=== PATIENT | male | born 1945 | race Caucasian/White ===

== ENCOUNTER 2018-10-21 15:50 | Inpatient (IN) | payer BC, MEDICARE ==
[~2018-10-21 15:50] MED LIST: ISOVUE-370 76%-LOCM 1 ML ONE
[2018-10-21 17:13] LABS: #Lymphocytes 1.6 thou/uL (1.20-3.40); #Neutrophils 16.6 thou/uL (1.40-6.50); %Basophils 0.1 % (0.0-1.0); %Eosinophils 0.1 % (0.0-10.0); %Lymphocytes 8.2 % (21.0-51.0); %Monocytes 5.3 % (0.0-10.0); %Neutrophils 86.2 % (42.0-75.0); Hemoglobin 15.5 g/dL (14.0-18.0); Mean Corpuscular HGB CONC 33.4 g/dL (32.0-36.0); Mean Corpuscular Hemoglobin 29.9 pg (27.0-31.0); Mean Corpuscular Volume 89.4 fL (78.0-98.0); Mean Platelet Volume 8.8 fL (7.4-10.4); Platelet Count 243 thou/uL (130-400); RBC Distribution Width 12.9 % (11.5-14.5); Red Blood Cell (RBC) Count 5.19 mill/uL (4.70-6.10); White Blood Cell (WBC) Count 19.2 thou/uL (4.8-10.8)
[2018-10-21 17:16] LABS: INR-International Normal Ratio 1.1; PTT 25.1 SEC (22.9-36.1); Prothrombin Time 13.8 SEC (12.0-14.7)
[2018-10-21 17:35] LABS: ALT (SGPT) 18 U/L (8-55); AST (SGOT) 21 U/L (5-34); Albumin 4.3 g/dL (3.4-4.8); Alkaline Phosphatase 95 U/L (40-150); Anion Gap 15 mmol/L (10-20); BUN (Urea Nitrogen) 17 mg/dL (8.4-25.7); Bilirubin, Total 0.7 mg/dL (0.2-1.2); Calc. Creatinine Clearance 0 mL/min (70-130); Calcium 9.9 mg/dL (7.8-10.44); Carbon Dioxide 24 mmol/L (23-31); Chloride 107 mmol/L (98-107); Estimated GFR-MDRD 62; Glucose 151 mg/dL (83-110); Potassium 3.3 mmol/L (3.5-5.1); Protein, Total 8.3 g/dL (5.8-8.1); Sodium 143 mmol/L (136-145)
[2018-10-21 17:38] LABS: CKMB 2.8 ng/mL (0-6.6); Troponin I 0.091 ng/mL (< 0.028)
[2018-10-21] MEDS ORDERED: Heparin 25,000 units/D5W 500 ML ONE (20:16)
--- NOTE | 2018-10-21 20:22 | CT ---
CT ANGIOGRAM ABDOMEN AND PELVIS AND BILATERAL LOWER EXTREMITIES: 10/21/2018 HISTORY: Intermittent right-sided leg pain for five days. COMPARISON: None. TECHNIQUE: Axial CT imaging at 2.5 mm intervals, from the lung bases through the feet, with IV contrast, using a CT angiogram protocol. Coronal and sagittal 3D reformatted imaging obtained. FINDINGS: The imaged lung bases appear unremarkable, aside from linear scar in the posterior right lower lobe a nd in the inferior left upper lobe. No free intraperitoneal air or fluid. Cholecystectomy clips are present. There is biliary gas, suggesting a prior sphincterotomy. The liver, spleen, pancreas, adr enal glands, and kidneys demonstrate no acute findings. There is a vague hypodensity in the superolateral aspect of the left kidney, best seen on axial image 60 and coronal image 90, too small to characterize. A follow-up renal ultrasound may beneficial. Limited assessment of the bowel demonstrates extensive diverticulosis of the descending colon and sig moid colon with no evidence for diverticulitis. No evidence for bowel inflammatory change or obstruc tion. The appendix is within normal limits. No lymphadenopathy is noted within the retroperitoneum, the pelvis, or the mesentery. The abdominal aorta shows extensive multifocal atherosclerotic calcification of the abdominal aorta a nd its branches. There is moderate stenosis at the origin of the celiac axis. There is mild stenosis at the origin of the superior mesenteric artery. The inferior mesentery artery is patent. There are two patent renal arteries bilaterally. There is probably hemodynamically significant steno sis involving the inferior renal artery bilaterally. There is focal ectasia of the infrarenal abdominal aorta with no evidence for aneurysm in this region . There is borderline aneurysmal dilatation of the abdominal aorta, at the level of the diaphragmati c hiatus, measuring 3 cm in transverse dimension. PELVIC ARTERIAL STRUCTURES: There is extensive atherosclerotic calcification of the bilateral common iliac arteries. There is a patent stent within the left common iliac artery. The internal carotid arteries are patent bilaterally, with hemodynamically significant stenosis noted at the origin of the bilateral internal iliac arteries, right greater than left. The external iliac artery on the left is occluded. Right external iliac artery is patent. LEFT LOWER EXTREMITY: The left common femoral artery is patent, reconstituted via branches of deep iliac circumflex artery, in the hypogastric artery. The left superficial femoral artery is patent and demonstrates mild distal atherosclerotic calcificat ion. The left profunda femoral artery is patent. The left popliteal artery is patent, with mild focal stenosis on axial image 323, near its origin. T he left anterior tibial artery is patent to the foot. The left tibioperoneal trunk is patent. The l eft posterior tibial artery is patent to the foot, and the left peroneal artery is patent to the ankl e. RIGHT LOWER EXTREMITY: The right common femoral artery is patent and demonstrates scattered atherosc lerotic calcification. The right profunda femoral artery is patent. There is mild stenosis at the origin of the right superficial femoral artery. No hemodynamically sig nificant stenosis is seen involving the proximal or the mid right SFA. The right SFA is occluded jason roximately 12-13 cm proximal to the knee, at approximately axial image 283 and coronal image 98. Thi s appears to be secondary to an intra-arterial filling defect, on the basis of embolism. The SFA is patent distal to this, on the right, on axial image 300, suggesting an acute embolism measuring appro ximately 2 cm in length. There is moderate stenosis involving the SFA, distally, on image 318. The right popliteal artery is patent. The right posterior tibial artery is patent proximally but is occl uded in the mid calf region. The left posterior tibial artery extends to approximately the level of the foot, and the left peronea l artery is patent to the level of the ankle. Review of the osseous structures of the abdomen and pelvis and bilateral lower extremities demonstrat es no acute findings. IMPRESSION: Findings suggesting an arterial embolism within the mid/distal right superficial femoral artery, as d etailed above. Additional areas of atherosclerotic disease, as detailed above. Report called to Dr. Garcia at 7:40 p.m. on 10/21/2018. CODE CR POS: [facility]
[2018-10-21] MEDS ORDERED: Heparin 10,000 UNITS/ 10 ML VIAL SLOW IVP SCH (20:30)
[2018-10-21] MEDS ORDERED: Heparin 25,000 units/D5W 500 ML IV SCH (20:30)
[2018-10-21 21:08] LABS: Troponin I Less than 0.010 ng/mL (< 0.028)
[2018-10-21] MEDS ORDERED: Ondansetron PF 4 MG/2 ML Vial IVP PRN (21:36)
[2018-10-21] MEDS ORDERED: Acetaminophen 325 MG TAB PO PRN (21:36)
[2018-10-22 00:05] LABS: Troponin I Less than 0.010 ng/mL (< 0.028)
[2018-10-22 02:58] LABS: PTT 133.6 SEC (22.9-36.1)
[2018-10-22 03:12] VITALS: BMI 20.3
[2018-10-22] MEDS ORDERED: Sodium Chloride 0.9% 1,000 ML IV SCH ×2 (05:30→11:17)
[2018-10-22] MEDS ORDERED: Levothyroxine 150 MCG TAB PO SCH (06:00)
[2018-10-22 06:29] LABS: Anion Gap 12 mmol/L (10-20); BUN (Urea Nitrogen) 19 mg/dL (8.4-25.7); Calc. Creatinine Clearance 78 mL/min (70-130); Calcium 8.8 mg/dL (7.8-10.44); Carbon Dioxide 24 mmol/L (23-31); Chloride 106 mmol/L (98-107); Estimated GFR-MDRD Greater than 90; Glucose 89 mg/dL (83-110); Sodium 138 mmol/L (136-145)
[2018-10-22 06:38] LABS: #Basophils 0.1 thou/uL (0.0-0.2); #Eosinphils 0.2 thou/uL (0.0-0.7); #Monocytes 0.6 thou/uL (0.11-0.59); #Neutrophils 3.4 thou/uL (1.40-6.50); %Basophils 0.9 % (0.0-1.0); %Eosinophils 2.6 % (0.0-10.0); %Lymphocytes 31.8 % (21.0-51.0); %Neutrophils 54.7 % (42.0-75.0); Hemoglobin 13.2 g/dL (14.0-18.0); Mean Corpuscular HGB CONC 33.3 g/dL (32.0-36.0); Mean Corpuscular Hemoglobin 30.1 pg (27.0-31.0); Mean Corpuscular Volume 90.3 fL (78.0-98.0); Mean Platelet Volume 9.6 fL (7.4-10.4); Platelet Count 134 thou/uL (130-400); RBC Distribution Width 13.5 % (11.5-14.5); Red Blood Cell (RBC) Count 4.38 mill/uL (4.70-6.10); White Blood Cell (WBC) Count 6.2 thou/uL (4.8-10.8)
--- NOTE | 2018-10-22 06:44 | HP ---
PRIMARY CARE PHYSICIAN: Dr. Franco CODE STATUS: FULL CODE. TIME OF EVALUATION: 2100 CHIEF COMPLAINT: Pain in the right lower extremity. HISTORY OF PRESENT ILLNESS: This is a 73-year-old male patient with past medical history of hypothyr oidism, peripheral vascular disease in the past with stent placement in the left femoral artery 19 ye ars ago. The patient came to the hospital after having right calf pain during examination Dr. Salvador avina id not feel a pulse on the right lower extremity and sent the patient to the hospital. No clear trig gers, no alleviating factors. The patient has significant claudication with worsening of the pain wi th exertion and improvement with rest. 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 REVIEW OF SYSTEMS: CONSTITUTIONAL: No fever or chills, generalized weakness. RESPIRATORY: No cough, sputum production or shortness of breath. CARDIOVASCULAR: No chest pain, palpitation. GASTROINTESTINAL: No nausea, no vomiting, diarrhea or abdominal pain. HOSPICE TEAM LEAD: No dizziness, headache or feeling lightheaded. GENITOURINARY: No burning with urination. EXTREMITIES: There is right lower extremity pain. The pulses are absent to palpation, audible to Do ppler. The rest of the review of systems were reviewed and are negative except for the findings mentioned ab ove. PAST MEDICAL HISTORY: As mentioned in the HPI. FAMILY HISTORY: Mother had cancer. Father had heart problems and diabetes. PAST SURGICAL HISTORY: The patient has a history of cholecystectomy. PSYCHIATRIC HISTORY: No previous psych history. SOCIAL HISTORY: The patient drinks socially. No drug use. Patient is a smoker on a daily basis, 1 pack of cigarettes per day for 60 years. ALLERGIES: PENICILLIN. REPORTED MEDICATIONS: Levothyroxine. PHYSICAL EXAMINATION: VITAL SIGNS: On presentation, blood pressure 185/61, heart rate 77, respiratory rate was 18, tempera ture 98.2. Pain was 2/10. Oxygen saturation was 96 on room air. GENERAL APPEARANCE: The patient is alert, oriented, no acute distress. HEENT: Normal conjunctivae. Moist oral mucosa, anicteric. NECK: No JVD. RESPIRATORY: Bilateral air entry. No rales or wheezes. Symmetric expansion. CARDIOVASCULAR: Normal rate, regular rhythm. No murmurs, no gallop. No edema. ABDOMEN: Soft, normal bowel sounds. MUSCULOSKELETAL: Normal range of motion. No spinal tenderness. SKIN: Warm and intact. No pallor, no rash, no redness. Peripheral pulses are nonpalpable, present to Doppler. Capillary refill seems to be intact. The patient has pain in the right lower calf. The re is no evidence of any new focal weakness. Baseline speech. Cranial nerves seems to be intact. PSYCHIATRIC: The patient is in good mood. No anxiety. Oriented. Optimal judgment. IMAGING: EKG was reviewed. EKG shows sinus bradycardia at the rate of 58, no acute ischemic finding s. LABORATORY DATA: Labs were reviewed. The patient's white count 19.2, hemoglobin 15.5, MCV 89, plate let count 243. Coagulation: PT 13.1, INR 1.1, PTT 25. D-dimer 1.0. Chemistry: Sodium 143, potass ium 3.3, chloride 107, carbon dioxide 34, anion gap 15, BUN 17, creatinine 1.16, GFR 62, glucose 151, calcium 9.9, total bilirubin 0.7, AST 31, ALT 18, alkaline phosphatase 95, CK-MB 2.8, troponin 0.09, the second one was 0.01. Serum total protein 8.3, albumin 4.3, globulin 4.0, albumin globulin ratio is 1.1. CT angio was reviewed. Findings are suggestive of arterial embolism within the mid distal right supe rficial femoral artery. ASSESSMENT AND PLAN: The patient will be placed in the hospital for the following medical problems: 1. Arterial embolism of the mid distal right superficial femoral artery. The patient has been place d on heparin drip, Dr. Dutta has been consulted from the ER, we will follow recommendations. We will adjust the treatment as per Dr. Dutta's recommendations. 2. Extending peripheral vascular disease with previous stent placement. Patient has also long-term history of smoking, advised to stop smoking. 3. Hypothyroidism. Continue hormone replacement. 4. Leukocytosis. White count 19.2, unclear etiology. No evidence of sepsis at this point, we will monitor white count. We will treat accordingly. 5. Hyperglycemia, glucose 151. The patient has no history of diabetes. This could be secondary to acute physical distress. No need for any acute intervention at this point. 6. Mildly elevated troponin on presentation 0.091. This has trended down to normal, most likely not secondary to cardiac disease. Will trend. Will treat underlying condition. The patient does have a history of coronary artery disease. Cardiology might be consulted if need for any surgical clearan ce is needed. 7. Deep venous thrombosis prophylaxis. The patient is on heparin drip.
[2018-10-22 06:56] LABS: PLT Morphology Comment Appears Adequate
--- NOTE | 2018-10-22 07:07 | CON ---
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 He is followed typically by Dr. Franco. About 1998, he underwe nt a left common iliac artery stenting by the Radiology Service for a left hip claudication. Since t hat time, he has continued smoking with no other major risk factors that he is aware of. He occasion ally gets claudication in both calves with mowing the yard, but last week while putting up [place] lights his right calf bothered him and he went in the house and it resolved and then Sunday he was mo wing the grass and had to stop due to his significant right calf cramps. He saw Dr. Franco yesterday w lele sent him to the emergency room. PAST MEDICAL HISTORY: Negative for hypertension, diabetes mellitus, dyslipidemia. PAST SURGICAL HISTORY: Cholecystectomy and then subsequent 2 occasions common bile duct stones requi ring ERCP. SOCIAL HISTORY: He smokes a pack of cigarettes a day. He is retired. No one accompanies him this e vening. MEDICATIONS: Levothyroxine 150 mcg a day. He has been on aspirin in the past, but stopped this many years ago due to bruising and restarted last p.m. PHYSICAL EXAMINATION: GENERAL: Alert, cooperative gentleman. Height 6 feet 1, weight 154. VITAL SIGNS: Most recent blood pressure 175/74, heart rate 61. NECK: No carotid bruits. LUNGS: Clear to auscultation. CARDIAC: Regular rate and rhythm. No murmurs. ABDOMEN: Soft, nontender, no masses, bruits, tenderness. EXTREMITIES: He has a palpable right femoral pulse and a palpable left dorsalis pedis pulse and bila teral popliteal pulses. He has no left femoral pulse. He has no peripheral edema. His feet are pin k and warm with no skin changes. I have reviewed his CT angiogram showing complete occlusion of his left external iliac artery from th e origin to the takeoff of the common femoral artery. He has a short segment occlusion in the right superficial femoral artery with tibioperoneal disease bilaterally. PLAN: The plan at this time is for right leg antegrade stick and percutaneous intervention for his r ight SFA lesion. If his left leg becomes more symptomatic he will require an aortobifemoral bypass. His initial troponin was slightly elevated; however, subsequent checks x2 were normal. His resting EKG is unremarkable. He has no history of chest pain. Informed consent has been obtained for right leg intervention.
[2018-10-22 07:27] LABS: Platelet Count 137 thou/uL (130-400)
[2018-10-22 07:30] LABS: Fibrinogen 470 mg/dL (253-463)
[2018-10-22 07:31] LABS: PTT 40.3 SEC (22.9-36.1); Prothrombin Time 13.2 SEC (12.0-14.7)
[2018-10-22 07:57] LABS: FSP-Qualitative Normal (Normal)
[2018-10-22] MEDS ORDERED: Sodium Chloride 0.65% Nasal 44 ML BOT EA NARE PRN (08:42)
[2018-10-22] MEDS ORDERED: Bisacodyl 5 MG TAB PO PRN (08:42)
[2018-10-22] MEDS ORDERED: Acetaminophen 500 MG TAB PO PRN (08:42)
[2018-10-22] MEDS ORDERED: hydrALAZINE 20 MG/ML VIAL SLOW IVP PRN (08:42)
[2018-10-22] MEDS ORDERED: Benzonatate 100 MG CAP PO PRN (08:42)
[2018-10-22] MEDS ORDERED: Senokot S 8.6-50 MG TAB PO PRN (08:42)
[2018-10-22] MEDS ORDERED: Ibuprofen 200 MG TAB PO PRN (08:42)
[2018-10-22] MEDS ORDERED: cloNIDine 0.1 MG TAB PO PRN (08:42)
[2018-10-22] MEDS ORDERED: Nitroglycerin 0.4 MG TAB (25 Tab Bottle) SL PRN (08:42)
[2018-10-22] MEDS ORDERED: Aspirin 81 mg Enteric Coated Tablet PO SCH (09:00)
[2018-10-22] MEDS ORDERED: Lidocaine 1% (PF) 30 ML VIAL ONE (09:16)
[2018-10-22] MEDS ORDERED: Midazolam HCl 2 mg/2 ml Vial ONE (09:48)
[2018-10-22] MEDS ORDERED: Fentanyl 100 MCG/2 ML VIAL ONE (09:49)
[2018-10-22] MEDS ORDERED: Heparin 10,000 UNITS/1 ML VIAL ONE (10:09)
[2018-10-22] MEDS ORDERED: Iopamidol 370 76% 50 ML VIAL FS ONE (10:13)
[2018-10-22] MEDS ORDERED: Protamine Sulfate 50 MG/5 ML VIAL ONE (10:43)
[2018-10-22] MEDS ORDERED: Clopidogrel Bisulfate 300 MG TAB ONE (10:45)
--- NOTE | 2018-10-22 10:59 | OP ---
PREOPERATIVE DIAGNOSIS: Peripheral artery disease, right leg. PROCEDURE: Right lower extremity angiography with balloon angioplasty 5 x 100 Lutonix and then compl etion with a 6 x 80 Sentinol stent posted with a 5-mm balloon. SURGEON: Marshall Dutta M.D. CONTRAST: 32. FLUOROSCOPY: 6.9 minutes. IV SEDATION: Versed and fentanyl, 35 minutes sedation time. PROCEDURE IN DETAIL: After prepping and draping the right groin, a micropuncture was used to punctur e the common femoral artery, wire inserted, and the 5-Upper Sorbian microcatheter inserted. Angiography [place] wed the catheter entered the common and then into the profunda femoral artery. It was withdrawn and slight bend on the microwire allowed the SFA to be cannulated. [employer] wire and 5-Upper Sorbian dilator and sheath were placed. The patient was then heparinized. After angiography, demonstrated essentially a total occlusion of the distal SFA over a period of about 3 cm and then some disease proximal and di stal to this. There was 3-vessel runoff, although the anterior tibia had a high grade lesion at its origin. A 4 x 80 balloon was then used to predilate the lesion following which a 5 x 100 Lutonix bal loon was inflated for 3 minutes. Result was suboptimal and it was elected to place a 6 x 80 Sentinol stent, which was posted with a 5-mm balloon with good result and good runoff distally. The patient tolerated the procedure.
[2018-10-22] MEDS ORDERED: Fentanyl 100 MCG/2 ML VIAL SLOW IVP PRN (11:17)
[2018-10-22] MEDS ORDERED: HYDROcodone/Acetaminophen 5/325 mg Tablet PO PRN (11:17)
--- NOTE | 2018-10-22 15:57 | PDOC.PN ---
- Subjective Encounter Start Date: 10/22/18 Encounter Start Time: 15:56 Subjective: seen and examined.s/p R leg arterial stenting -: feels well..no N/V.no dizzziness.no fever - Objective MAR Reviewed: Yes Vital Signs & Weight: Vital Signs (12 hours) Temp Pulse Resp BP Pulse Ox 10/22/18 11:10 97.7 F 60 18 164/68 H 95 10/22/18 08:32 97.7 F 57 L 16 141/63 H 96 Weight Weight 154 lb 1.65 oz Result Diagrams: 10/22/18 07:10 10/22/18 05:13 Radiology Reviewed by me: Yes (ECHO -NL EF.Diastolic dysFx) Phys Exam - Physical Examination Constitutional: NAD HEENT: PERRLA, moist MMs, sclera anicteric, oral pharynx no lesions Neck: no nodes, no JVD, supple, full ROM Respiratory: no wheezing, no rales, no rhonchi, clear to auscultation bilateral Cardiovascular: RRR, no significant murmur, no rub B/L doraslia pedis pulses felt easily.lower ext warm Gastrointestinal: soft, non-tender, no distention, positive bowel sounds Musculoskeletal: no edema, pulses present Neurological: non-focal, normal sensation, moves all 4 limbs Psychiatric: normal affect, A&O x 3 Dx/Plan (1) Claudication of both lower extremities Code(s): I73.9 - PERIPHERAL VASCULAR DISEASE, UNSPECIFIED Status: Acute (2) PAD (peripheral artery disease) Code(s): I73.9 - PERIPHERAL VASCULAR DISEASE, UNSPECIFIED Status: Acute (3) Tobacco abuse Code(s): Z72.0 - TOBACCO USE Status: Acute (4) Hypothyroid Code(s): E03.9 - HYPOTHYROIDISM, UNSPECIFIED Status: Chronic - Plan plan discussed w/ family, DVT proph w/SCDs S/P R leg arterial stenting .Left not amenable for stents d/t complete occl -: Plavix to be started by CTS. -: strong tobacco cessation advice given. -: HD stable.Dc later of remains so and Ok w CTS -: cont ASA.Heparin drip stopped * . Review of Systems - Review of Systems Constitutional: negative: fever, chills, sweats, weakness, malaise, other ENT: negative: Ear Pain, Ear Discharge, Nose Pain, Nose Discharge, Nose Congestion, Mouth Pain, Mouth Swelling, Throat Pain, Throat Swelling, Other Respiratory: negative: Cough, Dry, Shortness of Breath, Hemoptysis, SOB with Excertion, Pleuritic Pain, Sputum, Wheezing Cardiovascular: negative: chest pain, palpitations, orthopnea, paroxysmal nocturnal dyspnea, edema, light headedness, other Gastrointestinal: negative: Nausea, Vomiting, Abdominal Pain, Diarrhea, Constipation, Melena, Hematochezia, Other Genitourinary: negative: Dysuria, Frequency, Incontinence, Hematuria, Retention , Other Musculoskeletal: negative: Neck Pain, Shoulder Pain, Arm Pain, Back Pain, Hand Pain, Leg Pain, Foot Pain, Other Skin: negative: Rash, Lesions, Josue, Bruising, Other Neurological: negative: Weakness, Numbness, Incoordination, Change in Speech, Confusion, Seizures, Other - Medications/Allergies Allergies/Adverse Reactions: Allergies Allergy/AdvReac Type Severity Reaction Status Date / Time Penicillins Allergy Verified 10/22/18 03:08 Medications: Current Medications Acetaminophen (Tylenol) 1,000 mg PO Q6H PRN PRN Reason: Mild Pain (1-3) Hydrocodone Bitart/Acetaminophen (Adams 5/325) 1 tab PO Q4H PRN PRN Reason: Pain 4-6 Last Admin: 10/22/18 12:52 Dose: 1 tab Aspirin (Ecotrin) 81 mg PO DAILY [facility] Last Admin: 10/22/18 10:45 Dose: Not Given Benzonatate (Tessalon) 100 mg PO Q6H PRN PRN Reason: Cough Bisacodyl (Dulcolax) 10 mg PO DAILYPRN PRN PRN Reason: Constipation Clonidine (Catapres) 0.1 mg PO Q4H PRN PRN Reason: sbp>160 Clopidogrel Bisulfate (Plavix) 75 mg PO DAILY [facility] Fentanyl (Sublimaze) 25 mcg SLOW IVP Q2H PRN PRN Reason: Pain IF UNABLE TO TAKE PO Hydralazine HCl (Apresoline) 10 mg SLOW IVP Q4H PRN PRN Reason: SBP>170 Sodium Chloride (Normal Saline 0.9%) 1,000 mls @ 75 mls/hr IV .[id number] [facility] Last Admin: 10/22/18 12:14 Dose: 1,000 mls Ibuprofen (Motrin) 400 mg PO Q4H PRN PRN Reason: Fever > 101 Levothyroxine Sodium (Synthroid) 150 mcg PO 0600 [facility] Last Admin: 10/22/18 06:27 Dose: 150 mcg Nitroglycerin (Nitrostat) 0.4 mg SL Q5MIN PRN PRN Reason: Chest Pain Ondansetron HCl (Zofran) 4 mg IVP Q6H PRN PRN Reason: Nausea/Vomiting Pantoprazole Sodium (Protonix) 40 mg PO DAILY [facility] Last Admin: 10/22/18 10:45 Dose: Not Given Senna/Docusate Sodium (Senokot S) 2 tab PO BID PRN PRN Reason: Constipation Sodium Chloride ([place] Nasal Buhler 0.65%) 0 ml EA NARE QIDPRN PRN PRN Reason: Nasal Congestion
[2018-10-22 18:10] VITALS: BP 143/72; TEMP 98.6
--- NOTE | 2018-10-23 08:18 | DIS ---
HOSPITAL COURSE: The patient was admitted with a recent onset of worsening claudication in his right lower extremity. He was noted to have a slight troponin bump on admission; however, his ensuing 2 s tudies were normal. He denied any chest pain and his EKG at rest was normal. He underwent a CT marry ography demonstrating complete occlusion of his left external iliac artery and then a subtotal or com plete occlusion of the segment of his distal right superficial femoral artery. He was taken to the a ngiography suite through a right femoral puncture and underwent angioplasty and then stenting of his right SFA. He had a good palpable pedal pulse post-procedure and will be discharged home this evenin g if there is no bleeding from the puncture site. He is to begin an aspirin 81 mg a day and begin Pl avix 75 mg a day for at least a couple of months. Discharge and follow up instructions have been giv en, including the need for smoking cessation.
[2018-10-23] MEDS ORDERED: Clopidogrel Bisulfate 75 MG TAB PO SCH (09:00)
== END 2018-10-22 19:50 | disposition home or self-care (01) | DRG 254 ==
LOC: ERS 15:50 → 2NO 20:17
PROVIDERS: ADMIT Hospitalist; ATTEND Hospitalist
PROC: 047K34Z Dilation of Right Femoral Artery with Drug-eluting Intraluminal Device, Percutaneous Approach (ICD-10-PCS; principal; 2018-10-21)
DX: I74.3 Embolism and thrombosis of arteries of the lower extremities (principal); E03.9 Hypothyroidism, unspecified; R73.9 Hyperglycemia, unspecified
CPT/HCPCS: 36415; 37226; 75635; 76942; 80048; 80053; 82553; 84484; 85025; 85049; 85300; 85347; 85362; 85379; 85384; 85610; 85730; 93005; 93306; 96365; 96366; 96375; 99152; 99153; 99406; C1725; C1769; J1644; J2001; J2250; J2720; J3010

== ENCOUNTER 2019-07-30 10:45 | Outpatient (CLI) | payer BC | END 2019-07-30 10:46 | disposition home or self-care (01) | LOC: EDSTATUS 11:00 | PROVIDERS: ATTEND Otolaryngology Plastic Surgery within the Head & Neck | DX: R13.13 Dysphagia, pharyngeal phase (principal); R07.0 Pain in throat | CPT/HCPCS: 74230 ==

== ENCOUNTER 2021-07-13 | Outpatient (CLI) | payer BC | END 2021-07-13 13:31 | disposition home or self-care (01) ==

== ENCOUNTER 2024-10-09 11:06 | Observation (INO) | payer MEDICARE ==
[2024-10-09 12:25] LABS: #Basophils Less than 0.03 10x3/uL (0.0-0.2); #Eosinophils Less than 0.03 10x3/uL (0.0-0.7); %Basophils 0.2 % (0.0-1.0); %Lymphocytes 2.2 % (21.0-51.0); %Monocytes 5.1 % (0.0-10.0); %Neutrophils 91.9 % (42.0-75.0); Hematocrit 34.2 % (42.0-52.0); Hemoglobin 11.4 g/dL (14.0-18.0); Mean Corpuscular HGB CONC 33.3 g/dL (32.0-36.0); Mean Corpuscular Hemoglobin 30.6 pg (27.0-31.0); Mean Corpuscular Volume 91.7 fL (78.0-98.0); Platelet Count 159 10x3/uL (130-400); Red Blood Cell (RBC) Count 3.73 mill/uL (4.70-6.10)
[2024-10-09] MEDS ORDERED: Sodium Chloride 0.9% 100 ML ONE (12:32)
[2024-10-09] MEDS ORDERED: Cefepime 2 GM VIAL ONE (12:32)
[2024-10-09 12:41] LABS: ALT (SGPT) 8 U/L (8-55); AST (SGOT) 18 U/L (5-34); Albumin 3.1 g/dL (3.4-4.8); Alkaline Phosphatase 57 U/L (40-110); Anion Gap 12 mmol/L (10-20); BUN (Urea Nitrogen) 23 mg/dL (8.4-25.7); Bilirubin, Total 0.8 mg/dL (0.2-1.2); Calc. Creatinine Clearance 0 mL/min (70-130); Calcium 8.3 mg/dL (7.8-10.44); Carbon Dioxide 22 mmol/L (23-31); Chloride 101 mmol/L (98-107); Estimated GFR 56; Globulin 2.4 g/dL (2.4-3.5); Glucose 104 mg/dL (83-110); Magnesium 1.7 mg/dL (1.6-2.6); Potassium 4.8 mmol/L (3.5-5.1); Protein, Total 5.5 g/dL (5.8-8.1); Sodium 130 mmol/L (136-145)
[2024-10-09 12:44] LABS: Troponin I 0.018 ng/mL (< 0.028)
[2024-10-09 14:28] LABS: Bacteria/HPF None Seen HPF (None Seen); Bilirubin Negative (Negative); Blood, Urine Negative (Negative); CAUTI Indications for Culture Immunosuppressed; Clarity Clear (Clear); Glucose, Urine (Dipstick) Normal (Negative); Ketone, Urine 10 mg/dL (Negative); Leukocyte Negative Leu/uL (Negative); Nitrite Negative (Negative); Protein, Urine (Dipstick) 10 mg/dL (Neg-Trace); RBC/HPF 0-3 HPF (0-3); Specific Gravity, Urine 1.019 (1.002-1.036); Squamous Epithelial 0-3 HPF (0-3); WBC/HPF 0-3 HPF (0-3); pH, Urine 6.5 (5.0-9.0)
[2024-10-09 14:30] LABS: Urine Culture Reflex No No; Urine Culture Reflex Yes Yes
[2024-10-09 18:09] VITALS: BMI 19.5
[2024-10-09] MEDS: Vancomycin (BATCH) 1.75 GM in Premix 1 BAG IVPB SCH (18:29)
[2024-10-09] MEDS: Acetaminophen 325 MG TAB PO PRN (18:47)
[2024-10-09] MEDS: Sodium Chloride 0.9% 1,000 ML IV SCH (18:50)
[2024-10-09] MEDS: Famotidine 20 MG TAB PO SCH (20:40)
[2024-10-10 05:09] LABS: #Basophils Less than 0.03 10x3/uL (0.0-0.2); %Basophils 0.3 % (0.0-1.0); %Eosinophils 2.8 % (0.0-10.0); %Lymphocytes 5.7 % (21.0-51.0); %Monocytes 8.7 % (0.0-10.0); %Neutrophils 82.3 % (42.0-75.0); Hematocrit 32.5 % (42.0-52.0); Hemoglobin 10.8 g/dL (14.0-18.0); Mean Corpuscular HGB CONC 33.2 g/dL (32.0-36.0); Mean Corpuscular Hemoglobin 30.4 pg (27.0-31.0); Mean Corpuscular Volume 91.5 fL (78.0-98.0); Mean Platelet Volume 11.2 fL (7.4-10.4); Platelet Count 122 10x3/uL (130-400); RBC Distribution Width 14.2 % (11.5-14.5); Red Blood Cell (RBC) Count 3.55 mill/uL (4.70-6.10)
[2024-10-10 05:18] LABS: Anion Gap 10 mmol/L (10-20); BUN (Urea Nitrogen) 19 mg/dL (8.4-25.7); Calc. Creatinine Clearance 59 mL/min (70-130); Carbon Dioxide 20 mmol/L (23-31); Chloride 106 mmol/L (98-107); Estimated GFR 79; Glucose 91 mg/dL (83-110); Potassium 3.9 mmol/L (3.5-5.1); Sodium 132 mmol/L (136-145)
[2024-10-10] MEDS: CHOLECALCIFEROL PO SCH (08:35)
[2024-10-10] MEDS: VITAMIN K2 PO SCH (08:35)
[2024-10-10] MEDS: FLU (Fluad Triv) TS24-25 (65UP)/MF59C/PF 45 MCG/0.5 ML Syringe IM ONE (08:45)
[2024-10-10] MEDS: Atorvastatin Calcium 20 MG TAB PO SCH (08:48)
[2024-10-10] MEDS: Citalopram 20 MG TAB PO SCH (08:49)
[2024-10-10] MEDS: Aspirin 81 mg Enteric Coated Tablet PO SCH (08:49)
[2024-10-10] MEDS ORDERED: CHOLECALCIFEROL PO SCH (09:00)
[2024-10-10] MEDS ORDERED: Isosorbide Mononitrate 60 MG ER.TAB PO SCH (09:00)
[2024-10-10] MEDS ORDERED: VIT K2 PO SCH (09:00)
[2024-10-10] MEDS ORDERED: Enoxaparin 40 MG (0.4 mL) SYRINGE SC SCH (09:00)
[2024-10-10] MEDS ORDERED: LEVOTHYROXINE SODIUM 112 MCG PO SCH (09:00)
[2024-10-10] MEDS ORDERED: [UNRECOGNIZED DRUG - OTHER] PO SCH (09:00)
[2024-10-10] MEDS: Ranolazine ER 500 MG TAB PO SCH (10:15)
[2024-10-10 12:05] VITALS: BMI 19.5
[2024-10-10 12:44] VITALS: BP 133/61; TEMP 97.8
[2024-10-11] MEDS ORDERED: Levothyroxine Sodium 100 MCG TAB PO SCH (06:00)
[2024-10-11] MEDS ORDERED: Isosorbide Mononitrate 30 MG ER.TAB PO SCH (09:00)
== END 2024-10-10 14:31 | disposition home or self-care (01) ==
LOC: ERS 11:06 → OBS 16:19
PROVIDERS: ADMIT Internal Medicine; ATTEND Internal Medicine
DX: I25.10 Atherosclerotic heart disease of native coronary artery without angina pectoris (principal); I73.9 Peripheral vascular disease, unspecified; I10 Essential (primary) hypertension; R55 Syncope and collapse; E86.0 Dehydration; K52.9 Noninfective gastroenteritis and colitis, unspecified; I95.1 Orthostatic hypotension; E78.5 Hyperlipidemia, unspecified; E03.9 Hypothyroidism, unspecified; F17.200 Nicotine dependence, unspecified, uncomplicated; Z98.61 Coronary angioplasty status; Z90.49 Acquired absence of other specified parts of digestive tract; Z88.0 Allergy status to penicillin; Z79.899 Other long term (current) drug therapy
CPT/HCPCS: 70450; 71045; 80048; 80053; 81001; 83605; 83735; 83880; 84484; 85025 ×2; 87040; 87086; 93005; 94760; 96365; 96366; 96367; 99285; J0692; J3370; J7030; 36415; G0378